=== PATIENT | male | born 2000 | race Caucasian/White ===

== ENCOUNTER → 2020-08-14 06:47 | Outpatient (CLI) | payer MEDICAID, SELFPAY ==
[2020-08-14 23:58] LABS: SARS-CoV-2 RNA PCR Positive
== END ==
PROVIDERS: PCP Pediatrics; Visit Provider Nurse Practitioner Pediatrics
DX: U07.1 COVID-19 (principal)
CPT/HCPCS: C9803; U0003; U0005